=== PATIENT | female | born 1995 | race African-American/Black ===

== ENCOUNTER 2017-11-14 22:17 | Observation (INO) | payer MEDICAID ==
[~2017-11-14] VITALS: Ht 154.9 cm; Wt 70.3 kg
[~2017-11-14 22:17] MED LIST: ALBU6.7H INH
[2017-11-14] MEDS ORDERED: DEXT 5%/LR + PITOCIN 20UNITS/L 1,000 ML IV SCH (23:05)
[2017-11-14] MEDS ORDERED: NALOXONE HCL 0.4 MG/ML 1ML VIAL IM PRN (23:15)
[2017-11-14] MEDS ORDERED: METHYLERGONOVINE MALEATE 0.2 MG/ML IM PRN (23:15)
[2017-11-14] MEDS ORDERED: BETAMETHASONE ACET/BETAMET 30 MG/5 ML VIAL IM SCH (23:30)
[2017-11-14] MEDS: MAGNESIUM 20 G PREMIX (L & D) 500 ML IV SCH (23:40)
[2017-11-14] MEDS: LACTATED RINGERS 1,000 ML IV SCH (23:41)
[2017-11-15] MEDS ORDERED: AMPICILLIN 2,000 MG in SODIUM CHLORIDE 0.9% 100 ML IV SCH ×2
[2017-11-15 00:15] LABS: BASOPHILS % 0.1 % (0.0-2.0); EOSINOPHILS % 0.2 % (0.0-5.0); HEMATOCRIT. 32.7 % (36.0-48.0); HEMOGLOBIN. 10.5 g/dL (12.0-16.0); LYMPHOCYTES % 14.9 % (20.0-50.0); MEAN CORPUSCULAR HEMOGLOBIN 24.1 pg (28.0-32.0); MEAN CORPUSCULAR VOLUME 74.8 fL (81.0-99.0); MEAN PLATELET VOLUME 8.7 fl (7.4-10.4); MONOCYTES % 7.3 % (2.0-8.0); NEUTROPHILS % 77.5 % (40.0-76.0); PLATELET 287 x1000/uL (130-400); RED BLOOD CELL COUNT 4.37 mill/uL (4.2-5.4); RED CELL DISTRIBUTION WIDTH 13.9 % (11.6-14.6)
[2017-11-15 00:36] LABS: CARBON DIOXIDE 20 mEq/L (21-32); CHLORIDE 110 mEq/L (98-107)
[2017-11-15] MEDS ORDERED: NIFE30TA94 PO (01:08)
[2017-11-15] MEDS: LACTATED RINGERS 1,000 ML IV SCH ×2 (01:26→13:04)
[2017-11-15] MEDS ORDERED: CLINDAMYCIN 900 MG in DEXTROSE 5% WATER 50 ML IV SCH (02:00)
[2017-11-15] MEDS: BUTORPHANOL TARTRATE 2 MG/ML VIAL IV PRN ×2 (02:01→11:21)
[2017-11-15] MEDS: MAGNESIUM 20 G PREMIX (L & D) 500 ML IV SCH ×2 (07:43→17:06)
[2017-11-15 07:57] LABS: RUBELLA IGG 107.9 IU/mL (4.99-10)
[2017-11-15 07:58] LABS: HEPATITIS B SURFACE ANTIGEN NEGATIVE
[2017-11-15 09:06] LABS: CLARITY URINE CLEAR (CLEAR); COLOR URINE DARK YELLOW (YELLOW); KETONES URINE 2+ (NEGATIVE); LEUKOCYTE ESTERASE URINE 1+ (NEGATIVE); NITRITE URINE NEGATIVE (NEGATIVE); OCCULT BLOOD URINE NEGATIVE (NEGATIVE); PH URINE 5.5 (4.5-8.0); PROTEIN URINE 1+ (NEGATIVE); SPECIFIC GRAVITY URINE 1.028 (1.005-1.030); UROBILINOGEN URINE 0.2 E.U./dL (0.2-1.0)
[2017-11-15 09:20] LABS: *AMPHETAMINES SCREEN URINE NEGATIVE (NEGATIVE); *BARBITURATES SCREEN URINE NEGATIVE (NEGATIVE); *BENZODIAZEPINES SCREEN URINE NEGATIVE (NEGATIVE); *COCAINE SCREEN URINE NEGATIVE (NEGATIVE); CANNABINOID URINE SCREEN NEGATIVE (NEGATIVE); METHADONE URINE SCREEN NEGATIVE (NEGATIVE); OPIATES URINE SCREEN NEGATIVE (NEGATIVE); PHENCYCLIDINE URINE SCREEN NEGATIVE (NEGATIVE)
[2017-11-15] MEDS: CLINDAMYCIN 900 MG in DEXTROSE 5% WATER 50 ML IV SCH ×2 (11:52→20:05)
[2017-11-15] MEDS ORDERED: ONDANSETRON HCL 4MG/2ML VIAL IV PRN (15:12)
[2017-11-15 17:06] VITALS: BP 122/60
== END 2017-11-15 22:10 | disposition left against medical advice (07) ==
LOC: L&D 22:17
PROVIDERS: ADMIT Specialist; ATTEND Specialist
DX: O60.03 Preterm labor without delivery, third trimester (principal); Z3A.33 33 weeks gestation of pregnancy; Z79.899 Other long term (current) drug therapy
CPT/HCPCS: 36415; 76805; 76810; 80053; 80305; 81001; 83735; 85025; 85610; 85730; 86592; 86703; 86762; 86850; 86900; 86901; 87340; 96365; 96366; 96367; 96368; 96372; 96375; 96376; 99281; G0378; J0595; J0702; J2405; J3475; J3490; J7120; 59412; J7060

== ENCOUNTER 2019-01-16 22:08 | Emergency (ER) | payer MEDICAID, OTHER ==
[~2019-01-16] VITALS: Ht 154.9 cm; Wt 96.0 kg
[~2019-01-16 22:08] MED LIST changes: +NIFE30TA94 PO
[2019-01-17 00:08] LABS: CLARITY URINE CLEAR (CLEAR); COLOR URINE DARK YELLOW (YELLOW); KETONES URINE NEGATIVE (NEGATIVE); LEUKOCYTE ESTERASE URINE NEGATIVE (NEGATIVE); NITRITE URINE NEGATIVE (NEGATIVE); OCCULT BLOOD URINE 3+ (NEGATIVE); PROTEIN URINE NEGATIVE (NEGATIVE); SPECIFIC GRAVITY URINE 1.033 (1.005-1.030)
[2019-01-17] MEDS ORDERED: KETOROLAC 60MG/2ML VIAL IM ONE (02:15)
[2019-01-17 03:00] LABS: EOSINOPHILS % 0.4 % (0.0-5.0); HEMATOCRIT. 36.9 % (36.0-48.0); HEMOGLOBIN. 11.7 g/dL (12.0-16.0); LYMPHOCYTES % 18.2 % (20.0-50.0); MEAN CORPUSCULAR HEMOGLOBIN 24.2 pg (28.0-32.0); MEAN CORPUSCULAR VOLUME 76.1 fL (81.0-99.0); MEAN PLATELET VOLUME 7.8 fl (7.4-10.4); MONOCYTES % 4.8 % (2.0-8.0); NEUTROPHILS % 75.6 % (40.0-76.0); PLATELET 374 x1000/uL (130-400); RED BLOOD CELL COUNT 4.85 mill/uL (4.2-5.4); RED CELL DISTRIBUTION WIDTH 16.2 % (11.6-14.6)
[2019-01-17 03:06] LABS: CHLORIDE 110 mEq/L (98-107)
[2019-01-17] MEDS ORDERED: HYDROCODONE/ACETAMINOPHEN 5/325MG TABLET PO ONE (04:30)
[2019-01-17 05:21] VITALS: BP 121/62
== END 2019-01-17 05:22 | disposition home or self-care (01) ==
LOC: ER 22:08
DX: R10.30 Lower abdominal pain, unspecified (principal); N94.6 Dysmenorrhea, unspecified; Z98.890 Other specified postprocedural states; Z88.0 Allergy status to penicillin
CPT/HCPCS: 36415; 76830; 76856; 80053; 81003; 81025; 85025; 96372; 99284; J1885; Z7610

== ENCOUNTER 2021-03-01 22:24 | Emergency (ER) | payer MEDICAID, OTHER ==
[~2021-03-01] VITALS: Ht 154.9 cm; Wt 96.0 kg
[~2021-03-01 22:24] MED LIST changes: -ALBU6.7H INH; +ALBU6.7H11 INH
[2021-03-01 23:49] LABS: CLARITY URINE CLEAR (CLEAR); COLOR URINE YELLOW (YELLOW); KETONES URINE TRACE (NEGATIVE); LEUKOCYTE ESTERASE URINE NEGATIVE (NEGATIVE); NITRITE URINE NEGATIVE (NEGATIVE); OCCULT BLOOD URINE NEGATIVE (NEGATIVE); PH URINE 5.5 (4.5-8.0); PROTEIN URINE NEGATIVE (NEGATIVE); UROBILINOGEN URINE 0.2 E.U./dL (0.2-1.0)
[2021-03-02] MEDS ORDERED: KETOROLAC 60MG/2ML VIAL IM STA (00:01)
[2021-03-02 00:31] LABS: BASOPHILS % 0.6 % (0.0-2.0); EOSINOPHILS % 0.8 % (0.0-5.0); HEMATOCRIT. 38.4 % (36.0-48.0); HEMOGLOBIN. 12.5 g/dL (12.0-16.0); LYMPHOCYTES % 21.7 % (20.0-50.0); MEAN CORPUSCULAR HEMOGLOBIN 26.1 pg (28.0-32.0); MEAN CORPUSCULAR VOLUME 80.3 fL (81.0-99.0); MONOCYTES % 6.6 % (2.0-8.0); NEUTROPHILS % 70.3 % (40.0-76.0); PLATELET 352 x1000/uL (130-400); RED BLOOD CELL COUNT 4.78 mill/uL (4.2-5.4); RED CELL DISTRIBUTION WIDTH 15.1 % (11.6-14.6)
[2021-03-02 00:36] LABS: CHLORIDE 110 mEq/L (98-107)
[2021-03-02 00:44] LABS: ETHANOL BLOOD < 10 mg/dL
[2021-03-02 01:51] LABS: *AMPHETAMINES SCREEN URINE NEGATIVE (NEGATIVE); *BARBITURATES SCREEN URINE NEGATIVE (NEGATIVE); *BENZODIAZEPINES SCREEN URINE NEGATIVE (NEGATIVE); METHADONE URINE SCREEN NEGATIVE (NEGATIVE)
[2021-03-02 01:52] LABS: CANNABINOID URINE SCREEN NEGATIVE (NEGATIVE); OPIATES URINE SCREEN NEGATIVE (NEGATIVE); PHENCYCLIDINE URINE SCREEN NEGATIVE (NEGATIVE)
[2021-03-02 01:58] LABS: *COCAINE SCREEN URINE PRESUMTIVE POSITIVE (NEGATIVE)
[2021-03-02 03:00] VITALS: BP 130/62
== END 2021-03-02 03:14 | disposition home or self-care (01) ==
LOC: ER 22:24
DX: F14.10 Cocaine abuse, uncomplicated (principal); R10.9 Unspecified abdominal pain; J45.909 Unspecified asthma, uncomplicated; Z88.3 Allergy status to other anti-infective agents
CPT/HCPCS: 36415; 74176; 80053; 80305; 80320; 81003; 81025; 83690; 85025; 93005; 96372; 99285; J1885; Z7610; G0480

== ENCOUNTER 2021-07-02 19:37 | Emergency (ER) | payer MEDICAID ==
[~2021-07-02] VITALS: Ht 170.2 cm; Wt 91.0 kg
[2021-07-02 19:43] VITALS: BP 144/82
[2021-07-02] MEDS ORDERED: ACETAMINOPHEN 325MG TABLET PO ONE (23:30)
[2021-07-03] MEDS ORDERED: KETOROLAC 30MG/ML VIAL IM ONE (00:30)
[2021-07-03] MEDS ORDERED: NAPR-1176 MT (02:43)
[2021-07-03] MEDS ORDERED: ACET-2708 MT (02:43)
== END 2021-07-03 02:52 | disposition home or self-care (01) ==
LOC: ER 19:37
DX: M54.2 Cervicalgia (principal); R07.89 Other chest pain; F41.9 Anxiety disorder, unspecified; J45.909 Unspecified asthma, uncomplicated; Z98.890 Other specified postprocedural states; Z88.0 Allergy status to penicillin; V43.52XA Car driver injured in collision with other type car in traffic accident, initial encounter; Y93.89 Activity, other specified; Y92.488 Other paved roadways as the place of occurrence of the external cause
CPT/HCPCS: 71045; 72125; 81025; 96372; 99284; J1885